=== PATIENT | female | born 1965 | race American Indian/Alaskan Native ===

== ENCOUNTER 2017-11-27 01:02 | Emergency (ER) | payer OTHER ==
[2017-11-27 01:02] VITALS: BMI 46.2
[2017-11-27 01:25] VITALS: RESP 16
[2017-11-27] MEDS ORDERED: Sodium Chloride 0.9% 1,000 ML IV STA (01:26)
--- NOTE | 2017-11-27 01:28 | ED PDOC ---
Lower Extremity Pain/Injury Time Seen by Provider: 11/27/17 01:27 Chief Complaint (Nursing): Lower Extremity Problem/Injury Chief Complaint (Provider): bilateral muscular cramps History Per: Patient (52 y/o female h/o DM/HTN here with bilateral lower leg crampy pain x 3 days on and off. Notes her blood sugar was 585 at home. Deneis any abdominal pain/chest pain /fevers/ chills.) Past Medical History Reviewed: Historical Data, Nursing Documentation, Vital Signs Vital Signs: Last Vital Signs Temp 97.4 F L 11/27/17 01:22 Pulse 90 11/27/17 01:22 Resp 16 11/27/17 01:22 BP 160/96 H 11/27/17 01:22 Pulse Ox 100 11/27/17 01:22 - Medical History PMH: Anemia Denies: HIV, Chronic Kidney Disease - Surgical History Surgical History: Appendectomy, Hernia Repair - Family History Family History: States: No Known Family Hx, Hypertension - Home Medications Home Medications: Ambulatory Orders Medication Instructions Recorded GlipiZIDE [Glucotrol] 10 mg PO BIDAC #0 tab 04/03/16 Insulin Glargine, Recombina 50 unit SC HS #0 unit 04/03/16 [Lantus] Insulin Lispro [Humalog (Insulin 20 unit SQ AC #0 cartridge 04/03/16 Lispro)] metFORMIN [glucOPHAGE] 850 mg PO BID #0 tab 04/03/16 Ibuprofen [Motrin] 600 mg PO Q8 PRN #15 tab 11/27/17 - Allergies Allergies/Adverse Reactions: Allergies Allergy/AdvReac Type Severity Reaction Status Date / Time No Known Allergies Allergy Verified 11/27/17 01:22 Review of Systems ROS Statement: Except As Marked, All Systems Reviewed And Found Negative Physical Exam - Reviewed Nursing Documentation Reviewed: Yes Vital Signs Reviewed: Yes - Physical Exam Appears: Positive for: Well, Non-toxic, No Acute Distress Head Exam: Positive for: ATRAUMATIC, NORMAL INSPECTION, NORMOCEPHALIC Skin: Positive for: Normal Color, Warm, DRY Eye Exam: Positive for: EOMI, Normal appearance, PERRL ENT: Positive for: Normal ENT Inspection Neck: Positive for: Normal, Painless ROM Cardiovascular/Chest: Positive for: Regular Rate, Rhythm Respiratory: Positive for: CNT, Normal Breath Sounds Gastrointestinal/Abdominal: Positive for: Normal Exam, Soft Back: Positive for: Normal Inspection Extremity: Positive for: Normal ROM Neurologic/Psych: Positive for: Alert, Oriented - Laboratory Results Result Diagrams: 11/27/17 01:35 11/27/17 01:35 - ECG O2 Sat by Pulse Oximetry: 100 - Progress ED Course And Treament: NS 1 LITER WIDE OPEN MG 1 GM IV X 1 DOSE MOTRIN 600MG X 1 DOSE Disposition - Clinical Impression Clinical Impression: Leg cramps, Hypomagnesemia - Disposition Referrals: Dilip Mistry MD [Primary Care Provider] - Disposition: Routine/Home Disposition Time: 06:00 Condition: FAIR Prescriptions: Ibuprofen [Motrin] 600 mg PO Q8 PRN #15 tab PRN Reason: Pain, Moderate (4-7) Instructions: Nocturnal (Nighttime) Leg Cramps (DC) Forms: [facility] (Ethiopian), [facility] ED School/Work Excuse
[2017-11-27 01:50] LABS: BASO % 0.5 % (0.0-2.0); EOS # 0.1 K/uL (0.0-0.7); EOS % 1.2 % (0.0-4.0); HEMOGLOBIN 14.1 g/dL (12.0-16.0); LYMPH # 2.4 K/uL (1.0-4.3); LYMPH % 35.6 % (20.0-40.0); MEAN CELL VOLUME 83.2 fl (81.0-99.0); MEAN CORPUSCULAR HGB CONC 33.7 g/dL (33.0-37.0); MEAN PLATELET VOLUME 10.6 fl (7.2-11.7); MONO # 0.7 K/uL (0.0-0.8); MONO % 10.2 % (0.0-10.0); NEUT # 3.6 K/uL (1.8-7.0); NEUT % 52.5 % (50.0-75.0); NRBC % 0.2 % (0.0-0.0); RBC 5.04 Mil/uL (3.80-5.20); RED CELL DISTRIBUTION WIDTH 13.5 % (11.5-14.5); WHITE BLOOD COUNT 6.8 K/uL (4.8-10.8)
[2017-11-27 01:58] LABS: BLOOD UREA NITROGEN 13 mg/dl (7-17); CALCIUM 9.2 mg/dL (8.4-10.2); GFR AFRICAN-AMERICAN > 60; GFR NON-AFRICAN AMERICAN > 60
[2017-11-27] MEDS ORDERED: MAGNESIUM SULFATE IVPB ONE (03:37)
[2017-11-27] MEDS ORDERED: Magnesium Sulfate 2 gm/50 ml 2 GM/50 ML BAG ONE (03:47)
[2017-11-27 04:55] VITALS: TEMP 98.2
[2017-11-27] MEDS ORDERED: Insulin Regular 100 units/ml IVP ONE (05:00)
[2017-11-27] MEDS ORDERED: Insulin Regular 100 units/ml ONE (05:10)
[2017-11-27 06:41] VITALS: BP 110/70; PULSE 80
[2017-12-02 14:12] VITALS: O2SAT 100
== END 2017-11-27 06:15 | disposition home or self-care (01) ==
LOC: H.ER 01:02
DX: M79.662 Pain in left lower leg (principal); M79.661 Pain in right lower leg; E83.42 Hypomagnesemia; Z79.4 Long term (current) use of insulin; E11.9 Type 2 diabetes mellitus without complications; I10 Essential (primary) hypertension
CPT/HCPCS: 80048; 82948; 83735; 85025; 96361; 96365; 96375; 99284; J7040

== ENCOUNTER 2018-03-17 17:20 | Emergency (ER) | payer OTHER ==
[2018-03-17 17:20] VITALS: BMI 46.2
[2018-03-17 17:26] VITALS: PULSE 82; RESP 18; TEMP 98; O2SAT 99
--- NOTE | 2018-03-17 17:32 | ED PDOC ---
HPI: Allergic Reaction Time Seen by Provider: 03/17/18 17:31 Chief Complaint (Nursing): Allergic Reaction Chief Complaint (Provider): rash History Per: Patient Additional Complaint(s): 52-year-old female presents with itchy rash that started yesterday. Patient is unaware of any known allergen exposures. She denies any new medications, lotions , soaps, detergents, supplements or vitamins. No dietary changes. No associated throat discomfort or shortness of breath. No fever or chills. PMD: Dr. Mistry Past Medical History Reviewed: Historical Data, Nursing Documentation, Vital Signs Vital Signs: Last Vital Signs Temp 98 F 03/17/18 17:23 Pulse 82 03/17/18 17:23 Resp 18 03/17/18 17:23 BP 154/97 H 03/17/18 17:23 Pulse Ox 99 03/17/18 17:23 - Medical History PMH: Anemia, Diabetes, HTN - Surgical History Surgical History: Appendectomy, Hernia Repair, (x 3) Other surgeries: hysterectomy - Family History Family History: States: Hypertension - Living Arrangements Living Arrangements: With Family - Social History Current smoker - smoking cessation education provided: No Alcohol: Occasional Drugs: Denies - Home Medications Home Medications: Ambulatory Orders Medication Instructions Recorded GlipiZIDE [Glucotrol] 10 mg PO BIDAC #0 tab 04/03/16 Insulin Glargine, Recombina 50 unit SC HS #0 unit 04/03/16 [Lantus] Insulin Lispro [Humalog (Insulin 20 unit SQ AC #0 cartridge 04/03/16 Lispro)] metFORMIN [glucOPHAGE] 850 mg PO BID #0 tab 04/03/16 Ibuprofen [Motrin] 600 mg PO Q8 PRN #15 tab 11/27/17 predniSONE [Prednisone] 20 mg PO BID #10 tab 03/17/18 - Allergies Allergies/Adverse Reactions: Allergies Allergy/AdvReac Type Severity Reaction Status Date / Time No Known Allergies Allergy Verified 03/17/18 17:23 Review of Systems ROS Statement: Except As Marked, All Systems Reviewed And Found Negative Constitutional: Negative for: Fever ENT: Negative for: Throat Pain, Throat Swelling Cardiovascular: Negative for: Chest Pain Respiratory: Negative for: Cough Gastrointestinal: Negative for: Nausea, Vomiting Skin: Positive for: Rash Neurological: Negative for: Headache, Dizziness Physical Exam - Reviewed Nursing Documentation Reviewed: Yes Vital Signs Reviewed: Yes - Physical Exam Appears: Positive for: Well, Non-toxic, No Acute Distress Skin: Positive for: Normal Color, Rash (Scattered urticarial lesions noted to bilateral arms and legs) Eye Exam: Positive for: Normal appearance. Negative for: Periorbital swelling Neck: Positive for: Normal Cardiovascular/Chest: Positive for: Regular Rate, Rhythm Respiratory: Positive for: Normal Breath Sounds. Negative for: Wheezing, Respiratory Distress Neurologic/Psych: Positive for: Alert, Oriented - ECG O2 Sat by Pulse Oximetry: 99 Pulse Ox Interpretation: Normal - Progress ED Course And Treament: MDM Impression: Urticarial rash Plan: 40 mg PO prednisone in ED Patient was advised to take Claritin during the day and Benadryl before bed. Prescription for prednisone provided. Advised primary care doctor follow-up in 2 -3 days. Disposition - Clinical Impression Clinical Impression: Urticaria - Patient ED Disposition Is Patient to be Admitted: No Counseled Patient/Family Regarding: Diagnosis, Need For Followup, Rx Given - Disposition Referrals: Dilip Mistry MD [Staff Provider] - Disposition: Routine/Home Disposition Time: 17:35 Condition: STABLE Additional Instructions: Take [id number] Claritin daily during the day and 2 tablets of Benadryl before bed at nighttime. Take prescription meds as directed. Follow-up with primary doctor in 2-3 days. Prescriptions: predniSONE [Prednisone] 20 mg PO BID #10 tab Instructions: Sena (DC) Forms: [employer] (Kazakh)
[2018-03-17 17:49] VITALS: BP 152/89
== END 2018-03-17 17:48 | disposition home or self-care (01) ==
LOC: H.ER 17:20
DX: L50.0 Allergic urticaria (principal); I10 Essential (primary) hypertension; E11.9 Type 2 diabetes mellitus without complications; Z79.4 Long term (current) use of insulin; Z90.710 Acquired absence of both cervix and uterus

== ENCOUNTER 2018-10-12 19:00 | Emergency (ER) | payer OTHER ==
[2018-10-12 19:02] VITALS: BMI 46.2
[2018-10-12 19:11] VITALS: BP 185/93; PULSE 74; RESP 16; TEMP 98.2; O2SAT 97
--- NOTE | 2018-10-12 21:20 | ED PDOC ---
HPI: Trauma/Fall - HPI Time Seen by Provider: 10/12/18 20:15 Chief Complaint (Nursing): Back Pain Chief Complaint (Provider): Knee, Back, and Hand Pain s/p Trip and Fall History Per: Patient History/Exam Limitations: no limitations Injury Occurred (Timing): Today @ (1700) Additional Complaint(s): 53 year old female presents to the ED for evaluation s/p a trip and fall around 1700 today. Patient reports she fell forward landing on both knees and hands, possibly hyper-extending her lower back. She is complaining of right fifth digit pain, lower back pain (despite not landing on it), and bilateral knee pain near the patella regions, greater to right than left. Otherwise, denies numbness / tingling to lower extremities and head injury. PMD: Dilip Mistry Past Medical History Reviewed: Historical Data, Nursing Documentation, Vital Signs Vital Signs: Last Vital Signs Temp 98.2 F 10/12/18 19:10 Pulse 74 10/12/18 19:10 Resp 16 10/12/18 19:10 BP 185/93 H 10/12/18 19:10 Pulse Ox 97 10/12/18 19:10 - Medical History PMH: Anemia, Diabetes, HTN Denies: HIV, Chronic Kidney Disease - Surgical History Surgical History: Appendectomy, Hernia Repair, (x 3) - Family History Family History: States: Hypertension - Social History Current smoker - smoking cessation education provided: No Alcohol: None Drugs: Denies - Home Medications Home Medications: Ambulatory Orders Medication Instructions Recorded GlipiZIDE [Glucotrol] 10 mg PO BIDAC #0 tab 04/03/16 Insulin Glargine, Recombina 50 unit SC HS #0 unit 04/03/16 [Lantus] Insulin Lispro [Humalog (Insulin 20 unit SQ AC #0 cartridge 04/03/16 Lispro)] metFORMIN [glucOPHAGE] 850 mg PO BID #0 tab 04/03/16 Ibuprofen [Motrin] 600 mg PO Q8 PRN #15 tab 11/27/17 predniSONE [Prednisone] 20 mg PO BID #10 tab 03/17/18 Cyclobenzaprine [Cyclobenzaprine 10 mg PO Q8H PRN #15 tab 10/12/18 HCl] Ibuprofen [Motrin] 600 mg PO Q8H PRN #21 tab 10/12/18 - Allergies Allergies/Adverse Reactions: Allergies Allergy/AdvReac Type Severity Reaction Status Date / Time No Known Allergies Allergy Verified 03/17/18 17:23 Review of Systems ROS Statement: Except As Marked, All Systems Reviewed And Found Negative Musculoskeletal: Positive for: Back Pain (lower), Hand Pain (right 5th digit), Leg Pain (bilateral knees ) Neurological: Negative for: Numbness (or tingling to lower extremities) Physical Exam - Reviewed Nursing Documentation Reviewed: Yes Vital Signs Reviewed: Yes - Physical Exam Appears: Positive for: No Acute Distress Head Exam: Positive for: ATRAUMATIC, NORMOCEPHALIC Skin: Positive for: Normal Color (no ecchymosis or erythema; no break in skin integrity), Warm, Dry Eye Exam: Positive for: Normal appearance Neck: Positive for: Normal, Painless ROM, Supple Cardiovascular/Chest: Positive for: Regular Rate, Rhythm Respiratory: Positive for: Normal Breath Sounds. Negative for: Respiratory Distress Pulses-Dorsalis Pedis (L): 2+ Pulses-Dorsalis Pedis (R): 2+ Pulses-Radial (L): 2+ Pulses-Radial (R): 2+ Gastrointestinal/Abdominal: Positive for: Normal Exam, Soft. Negative for: Tenderness Back: Positive for: Normal Inspection (no signs of injury). Negative for: Vertebral Tenderness Extremity: Positive for: Normal ROM (full ROM to bilateral knees with some discomfort), Tenderness (tenderness between pip and mcp of right 5th digit without any swelling or erythema; mild tenderness to bone between pip and mcp joints of right 5th digit), Other (abrasions noted to bilateral knees; right hand: extensor tendon function in tact). Negative for: Swelling (or obvious injury to remainder of right hand) Neurological/Psych: Positive for: Awake, Alert, Symmetric/Intact Strength (upper/lower extremities bilaterally), Oriented (x3), Gait (steady and unassisted in ED). Negative for: Motor/Sensory Deficits - ECG O2 Sat by Pulse Oximetry: 97 (RA) Pulse Ox Interpretation: Normal - Radiology X-Ray: Interpreted by Me, Viewed By Me X-Ray Interpretation: Fracture (neg for fratcures to 5th digit and bilat knees) Medical Decision Making Medical Decision Making: Time: 2020 Initial Impression: pain s/p trip and fall Initial Plan: --Bilateral knee XR --Ibuprofen 600mg PO --Right hand XR --Wound care to knee abrasions: irrigated with copious amounts of saline and covered with bacitracin and sterile dressing. Will give pt ortho referral in case she has persistent knee discomfort. Upon discharge, she will be given Motrin 600mg and Flexeril 10mg for pain and muscle spasms respectively. 10:10: CLINICAL FINDINGS DISCUSSED WITH PT, PT WILL BE D/C HOME ROUTINE, WITH FOLLOW UP INFORMATION FOR ORTHO IF NEEDED. RX DISCUSSED ABOVE. PT GIVEN RETURN TO ED PRECAUTIONS. PT VERBALIZES UNDERSTANDING. Scribe Attestation: Documented by Nayeli Israel, acting as a scribe for Clarisse Lane NP. Provider Scribe Attestation: All medical record entries made by the Scribe were at my direction and person ally dictated by me. I have reviewed the chart and agree that the record accurately reflects my personal performance of the history, physical exam, medical decision making, and the department course for this patient. I have also personally directed, reviewed, and agree with the discharge instructions and disposition. Disposition - Clinical Impression Clinical Impression: Fall, Low back pain, Knee pain, acute - Patient ED Disposition Is Patient to be Admitted: No - Disposition Referrals: Remberto Cunningham III, MD [Staff Provider] - Disposition: Routine/Home Disposition Time: 22:10 Condition: IMPROVED Prescriptions: Cyclobenzaprine [Cyclobenzaprine HCl] 10 mg PO Q8H PRN #15 tab PRN Reason: Muscle Spasm Ibuprofen [Motrin] 600 mg PO Q8H PRN #21 tab PRN Reason: Pain, Moderate (4-7) Instructions: Low Back Pain in Adults, Preventing Falls, Knee Pain Forms: [facility] ED School/Work Excuse Print Language: DOMINICAN - POA Present On Arrival: None
[2018-10-12] MEDS ORDERED: Bacitracin 500 Units/gm Oint Foilpak UD ONE (22:11)
--- NOTE | 2018-10-13 13:45 | RAD ---
Date of service: 10/12/2018 PROCEDURE: Right small finger radiographs. HISTORY: fall/pain COMPARISON: None. TECHNIQUE: AP radiograph of the right hand, as well as spot oblique and lateral images of small finger were obtained. 3 views obtained. FINDINGS: RIGHT SMALL FINGER: Normal right small finger, without fracture or focal lesion. Remainder of the right hand (as seen on the AP view) grossly unremarkable. JOINTS: Normal. SOFT TISSUES: Normal. OTHER FINDINGS: None. IMPRESSION: Normal right small finger radiographs.
--- NOTE | 2018-10-13 17:00 | RAD ---
Date of service: 10/12/2018 PROCEDURE: Bilateral Knee Radiographs. HISTORY: fall COMPARISON: 07/16/2015 TECHNIQUE: 4 views obtained. FINDINGS: BONES: Right Knee: No fracture appreciated Left Knee: No fracture appreciated JOINTS: Right Knee: Arthrosis Left knee: Arthrosis SOFT TISSUES: Right Knee: Normal. Left Knee: Normal. JOINT EFFUSION: Right Knee: None. Left Knee: None. OTHER FINDINGS: None. IMPRESSION: No fracture dislocation noted. Bilateral osteoarthrosis-greater lateral patellofemoral tilt and joint space narrowing and arthrosis here.
== END 2018-10-12 22:52 | disposition home or self-care (01) ==
LOC: H.ER 19:00
DX: M54.5 Low back pain (principal); S80.219A Abrasion, unspecified knee, initial encounter; S69.91XA Unspecified injury of right wrist, hand and finger(s), initial encounter; W01.0XXA Fall on same level from slipping, tripping and stumbling without subsequent striking against object, initial encounter; Y92.89 Other specified places as the place of occurrence of the external cause; E11.9 Type 2 diabetes mellitus without complications; I10 Essential (primary) hypertension; Z79.4 Long term (current) use of insulin